=== PATIENT | male | born 1975 | race Two or more races ===

== ENCOUNTER → 2016-05-24 | Outpatient (CLI) | payer OTHER | LOC: CLAB 11:52 | PROVIDERS: ATTEND Family Medicine | DX: S93.411A Sprain of calcaneofibular ligament of right ankle, initial encounter (principal) | CPT/HCPCS: 73610-PO ==

== ENCOUNTER → 2016-06-18 | Outpatient (CLI) | payer OTHER | LOC: CIMAGING 16:42 | PROVIDERS: ATTEND Family Medicine | DX: M79.672 Pain in left foot (principal); M79.675 Pain in left toe(s) | CPT/HCPCS: 73620-PO ==